=== PATIENT | male | born 1990 | race Caucasian/White ===

== ENCOUNTER 2019-12-17 20:49 | Emergency (ER) | payer OTHER ==
[~2019-12-17] VITALS: Ht 170.2 cm; Wt 93.9 kg
[2019-12-17 23:40] VITALS: BP 131/66
== END 2019-12-17 23:40 | disposition home or self-care (01) ==
LOC: ED 20:49
DX: S80.12XA Contusion of left lower leg, initial encounter (principal); S50.312A Abrasion of left elbow, initial encounter; V49.9XXA Car occupant (driver) (passenger) injured in unspecified traffic accident, initial encounter; Y93.89 Activity, other specified; Y92.89 Other specified places as the place of occurrence of the external cause; Y99.8 Other external cause status
CPT/HCPCS: 90715; J2270; J2405; Q0092